=== PATIENT | male | born 1970 | race Caucasian/White ===

== ENCOUNTER 2024-11-22 17:34 | Emergency (ER) | payer OTHER, SELFPAY ==
[2024-11-22 17:38] VITALS: BP 148/85
[2024-11-22 18:49] VITALS: BMI 27.8
[2024-11-22] MEDS: ADACEL 0.5 ML IM (19:10)
--- NOTE | 2024-11-22 19:30 | ED.GENMED ---
History of Present Illness
General
Chief Complaint: Skin Surface Trauma
Time Seen by Provider: 11/22/24 19:04
History of Present Illness
History of Present Illness:
54-year-old male with no past medical history presenting to the emergency department with a left fingertip laceration. Patient states that he was making style potatoes this morning using a mandolin and scraped his right middle finger against the
blade. He states that the bleeding has slowed down but is still ongoing 10 hours later so he came in for further evaluation. No bony involvement. No numbness tingling. He is unsure when his last tetanus was. No trauma elsewhere.
Phy Exam
Physical Exam
Physical Exam:
GENERAL: in no acute distress
NECK: normal inspection
RESPIRATORY: no respiratory distress
CARDIOVASCULAR: regular rate and rhythm
EXTREMITIES: Right hand with distal third digit with superficial avulsion that is about 1 mm deep and 4 mm wide. Slight bleeding. Neurovascularly intact.
NEUROLOGIC: awake and alert, moves all extremities
SKIN: warm
Course
Orders/Labs/Results
Orders:
Orders
11/22/24 19:05
Tetanus/Diphth/Acelpertussis [Adacel] 0.5 ml IM .ONCE ONE
Vital Signs
Initial and Last Documented VS:
Initial Vital Signs
Temp Pulse Resp BP Pulse Ox
98.7 F 96 16 148/85 100
11/22/24 17:38 11/22/24 17:38 11/22/24 17:38 11/22/24 17:38 11/22/24 17:38
Last Documented Vital Signs
Temp Pulse Resp BP Pulse Ox
98.7 F 96 16 148/85 100
11/22/24 17:38 11/22/24 17:38 11/22/24 17:38 11/22/24 17:38 11/22/24 17:38
MDM/Problems Addressed
Differential Diagnosis Includes:
Patient is a 54-year-old man presenting to the emergency department with right third digit fingertip avulsion after using a mandolin slicer. On exam patient with slight bleeding from the laceration. Given that the area is avulsed unable to place
usages. I did washout the wound and place surgifoam and wrapped it. Will update patient's tetanus. Will observe and discharge if no recurrence of bleeding.
*Critical Care Note
Total Time (30-74mins, 75-104mins- exclusive of procedures): Not Applicable
ED Attending Note
-
Portions of this chart may have been created with voice recognition software.� Occasional wrong word or��sound alike� substitutions may have occurred due to the inherent limitations of voice recognition software.
Discharge Plan
Departure
Patient Disposition: Home (Routine Discharge)
Date of Disposition: 11/22/24
Time of Disposition: 19:54
Patient with high blood pressure during this ER visit?: No
Discharge Problem:
Laceration
Instructions: Wound Care (DC)
Referrals:
NONE,* [Family Provider] -
Activity Restrictions/Additional Instructions:
Please keep the area clean and dry for the first 24 hours. Afterwards you may wash the area. If you develop any fevers, chills, redness or drainage from the site please come back to the emergency department.
Interventions
Interventions:
*Risk Screen - Suicide Last Done: 11/22/24 17:38
*General Assessment Last Done: 11/22/24 18:49
*Neglect/Abuse Screening Last Done: 11/22/24 17:38
ED- Fall Risk Assessment Last Done: 11/22/24 18:49
*ED COVID-19 Vaccine History Last Done: 11/22/24 18:49
ED-Skin Assessment Last Done: 11/22/24 18:19
Discharge Date and Time
Print Language: CUBAN
== END 2024-11-22 19:58 | disposition home or self-care (01) ==
LOC: EMR 17:34
PROVIDERS: EMERGENCY PHYSICIAN Student in an Organized Health Care Education/Training Program
DX: S61.212A Laceration without foreign body of right middle finger without damage to nail, initial encounter (principal); W45.8XXA Other foreign body or object entering through skin, initial encounter; Z23 Encounter for immunization
CPT/HCPCS: 99282; 90471; 90715

== ENCOUNTER 2025-06-24 07:55 | Emergency (ER) | payer OTHER, SELFPAY ==
[2025-06-24 08:03] VITALS: BP 152/93
--- NOTE | 2025-06-24 09:02 | ED.GENMED ---
History of Present Illness
General
Chief Complaint: Eye Problems
Source: patient
Exam Limitations: none
Time Seen by Provider: 06/24/25 09:01
Nursing documentation reviewed up to this point in time: agreed with
History of Present Illness
History of Present Illness:
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 A few days prior to the visit, he began experiencing peripheral light flashes in the left eye, which
he initially disregarded. On the following day, he noticed a significant increase in floaters, particularly against a white background, which appeared as black specks. This morning, he noted the floaters had worsened, with a large one obstructing
his vision intermittently. He suspects altitude changes during a trip to [place] this week may have contributed to his symptoms. He does not report any eye pain or nausea. He is wearing contact lenses.
Past History
Past History
ED Past Surgical History: Other (Craniotomy 2000)
Review of Systems
Review of Systems
Allergies reviewed?: Yes
All Other Systems: ROS reviewed and negative except as documented in HPI and ROS
EENT: Reports other (Visual disturbance left eye)
ABD/GI: Denies nausea
Neurological: Denies headache
Phy Exam
Physical Exam
Physical Exam:
PHYSICAL EXAMINATION:
General: no apparent distress, not acutely ill
Neuro: alert and oriented.
Psychiatric: well kept. interactive and cooperative
Musculoskeletal: Moves with ease
Skin: Warm, pink.
Eye Exam
Eye Exam: PERRL, EOMI, conjunctiva normal, globe normal, visual acuity normal, visual henao normal and other (The vitreous in the left eye appears to have area of crystalline appearance with darkened areas scattered throughout)
Course
Orders/Labs/Results
Orders:
Orders
06/24/25 09:08
Visual Acuity- Treatment ONCE
Vital Signs
Initial and Last Documented VS:
Initial Vital Signs
Temp Pulse Resp BP Pulse Ox
98.1 F 96 16 152/93 95
06/24/25 08:03 06/24/25 08:03 06/24/25 08:03 06/24/25 08:03 06/24/25 08:03
Last Documented Vital Signs
Temp Pulse Resp BP Pulse Ox
98.1 F 96 16 152/93 95
06/24/25 08:03 06/24/25 08:03 06/24/25 08:03 06/24/25 08:03 06/24/25 09:05
MDM/Problems Addressed
Differential Diagnosis Includes:
The Differential Diagnosis includes, in no particular order and is not limited to:
1. Retinal tear
2. Posterior vitreous detachment
3. Vitreous hemorrhage
4. Retinal detachment
5. Ocular migraine
6. Eye floaters
7. Retinal vein occlusion
8. Uveitis
9. Macular degeneration
10. Vitritis
MDM/Problems Addressed:
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 A few days prior to the visit, he began experiencing peripheral light flashes in the left eye, which
he initially disregarded. On the following day, he noticed a significant increase in floaters, particularly against a white background, which appeared as black specks. This morning, he noted the floaters had worsened, with a large one obstructing
his vision intermittently. He suspects altitude changes during a trip to [place] this week may have contributed to his symptoms. He does not report any eye pain or nausea. He is wearing contact lenses.
During patient's evaluation, Dr. Levine called him back. He was put on speaker phone and states this could be either a vitreous detachment versus a retinal hemorrhage
He will see patient in his office now.
*Pulse Oximetry
SaO2: 95
Oxygen Mode of Delivery: Room air
Patient hypoxic: not evaluated
*Critical Care Note
Total Time (30-74mins, 75-104mins- exclusive of procedures): Not Applicable
ED Attending Note
-
Portions of this chart may have been created with voice recognition software.� Occasional wrong word or��sound alike� substitutions may have occurred due to the inherent limitations of voice recognition software.
Discharge Plan
Departure
Patient Disposition: Home (Routine Discharge)
Date of Disposition: 06/24/25
Time of Disposition: 09:18
Patient with high blood pressure during this ER visit?: No
Condition: Good
Discharge Problem:
Visual disturbance of one eye
Referrals:
Luis Levine MD [Active, Ophthalmology] - Keep scheduled appt
Activity Restrictions/Additional Instructions:
As we discussed go to Dr. Levine's office, he is expecting you
Interventions
Interventions:
*Risk Screen - Suicide Last Done: 06/24/25 08:03
*General Assessment Last Done: 06/24/25 09:16
*Neglect/Abuse Screening Last Done: 06/24/25 08:03
*ED- Fall Risk Assessment Last Done: 06/24/25 09:16
*ED COVID-19 Vaccine History Last Done: 06/24/25 09:16
*Nursing Disposition Last Done: 06/24/25 09:32
Discharge Date and Time
Discharge Date/Time: 06/24/25 09:33
Print Language: HONDURAN
== END 2025-06-24 09:33 | disposition home or self-care (01) ==
LOC: EMR 07:55
PROVIDERS: EMERGENCY PHYSICIAN Emergency Medicine; FAMILY PHYSICIAN Family Medicine
DX: H53.9 Unspecified visual disturbance (principal); Z85.830 Personal history of malignant neoplasm of bone
CPT/HCPCS: 99282